=== PATIENT | male | born 1955 | race Caucasian/White ===

== ENCOUNTER → 2016-10-20 | Outpatient (CLI) | payer OTHER ==
[~2016-10-20] MED LIST: ASPI-630 PO; IOHEXOL 300 MG/ML 75 ML VIAL. IV ONE; METO25TA9 PO; OMEP20CA9 PO; VENL37.56 PO
[2016-10-20 08:20] LABS: CALCIUM 8.9 mg/dL (8.5-10.1); CREATININE 1.2 mg/dL (0.7-1.3); GFR 61.6; POTASSIUM 4.3 mmol/L (3.5-5.1)
--- NOTE | 2016-10-20 09:56 | RAD ---
EXAM: CT ANGIOGRAPHY OF THE CHEST WITH AND WITHOUT INTRAVENOUS CONTRAST. HISTORY: Thoracic aortic aneurysm. TECHNIQUE: Computed tomographic angiography of the chest was performed before and after the intravenous administration of 75 mL Omnipaque 300. 3-D maximum intensity projections were also performed. COMPARISON: 11/13/2014. FINDINGS: Images of the upper abdomen reveal moderate to severe heterogeneous diffuse hepatic steatosis. The gallbladder is surgically absent. Bone windows reveal no suspicious lesions. No pulmonary emboli are identified. The ascending aorta is mildly ectatic at 4.5 cm, stable. The proximal arch measures 3.6 cm. The distal arch, 3.0 cm. The proximal descending portion, 3.2 cm. The distal descending portion, 2.4 cm. There is no aortic dissection. There is no arch vessel stenosis. There are no pathologically enlarged mediastinal or axillary lymph nodes. There is no pleural or pericardial effusion. The heart is at least mildly enlarged and a predominantly left ventricular pattern. A hypoattenuating nodule in the right thyroid lobe measures 11 mm, increased from 9 mm previously. Lung windows reveal mild dependent atelectasis. IMPRESSION: 1. Stable ascending aortic ectasia at 4.5 cm. 2. A right thyroid nodule has increased in size. Thyroid sonography is suggested for further evaluation. 3. Left ventricular dilatation. 4. Moderate to severe heterogeneous diffuse hepatic steatosis. *One or more of the following individualized dose reduction techniques were utilized for this examination: 1. Automated exposure control. 2. Adjustment of the mA and/or kV according to patient size. 3. Use of iterative reconstruction technique.
== END | disposition home or self-care (01) ==
LOC: CT 07:31
PROVIDERS: ATTEND Nurse Practitioner
DX: I71.2 Thoracic aortic aneurysm, without rupture (principal); E04.1 Nontoxic single thyroid nodule; K76.0 Fatty (change of) liver, not elsewhere classified; I10 Essential (primary) hypertension
CPT/HCPCS: 36415; 71275; 80048; Q9967

== ENCOUNTER → 2018-02-16 | Outpatient (CLI) | payer OTHER ==
[~2018-02-16] MED LIST changes: -IOHEXOL 300 MG/ML 75 ML VIAL. IV ONE; +METO-239 PO; -METO25TA9 PO
--- NOTE | 2018-02-17 09:04 | RAD ---
Thyroid ultrasound, 02/16/2018: HISTORY: Thyroid nodule on CT scan The right lobe of the gland measures 50.1 x 2.4 x 1.9 cm, while the left lobe of the gland measures 4.8 x 2.1 x 2.0 cm. There is a 1.6 cm simple cyst in the mid right lobe of the gland. Just inferior to this level there is a 5 mm nodule with internal echogenic foci. This probably represents a cyst with colloid debris. There are several other tiny subcentimeter smooth hypoechoic nodules in both lobes, including small cysts. No large nodules or nodules with highly suspicious features are seen. IMPRESSION: 1. Multinodular thyroid gland as described above. No highly suspicious features are evident. 2. ACR TI-RADS Category 3. No sonographic follow-up is required. Electronically signed by: Jovan Harper MD (02/17/2018 9:01 AM) [facility]
== END | disposition home or self-care (01) ==
LOC: US 14:36
PROVIDERS: ATTEND Physician Assistant
DX: E04.2 Nontoxic multinodular goiter (principal); F41.8 Other specified anxiety disorders; Z85.46 Personal history of malignant neoplasm of prostate; Z90.49 Acquired absence of other specified parts of digestive tract; Z90.89 Acquired absence of other organs; Z82.49 Family history of ischemic heart disease and other diseases of the circulatory system; Z80.49 Family history of malignant neoplasm of other genital organs
CPT/HCPCS: 76536

== ENCOUNTER → 2019-04-14 | Outpatient (CLI) | payer OTHER ==
[~2019-04-14] MED LIST changes: +CONTRAST GIVEN MC PRN; +IOHEXOL 350 MG/ML 100 ML VIAL. IV ONE; +OMEP-229 PO; -OMEP20CA9 PO
--- NOTE | 2019-04-14 09:29 | RAD ---
CTA OF THE CHEST WITH AND WITHOUT CONTRAST Clinical indications: Ascending aortic dilatation. Technique: Noncontrast axial localizer was performed. After IV infusion of 100 cc of Omnipaque 350, helical CT scanning of the chest was performed using the CT thoracic aortic protocol. Multiplanar MIP reconstructions were generated. Using a MIP algorithm, 3-D reconstruction was generated. PQRS compliance Statement One or more of the following individualized dose reduction techniques were utilized for this study: 1. Automated exposure control 2. Adjustment of the mA and/or kV according to patient size 3. Use of iterative reconstruction technique Comparison: October 20, 2016. Findings: There is aneurysmal dilatation of the ascending aorta measuring up to 5.2 cm in greatest caliber just distal to the sinuses of Valsalva. This measured 4.9 cm previously. Caliber of the distal ascending aorta is 4.5 cm. The caliber of the proximal aortic arch is 3.1 cm. The caliber of the distal aortic arch is 3.4 cm caliber of the proximal descending thoracic aorta is 3.4 cm. Caliber of the distal descending thoracic aorta is 2.9 cm. No intimal flap or dissection is seen. No occlusive disease or significant stenosis is evident involving the branches of the aortic arch. No central pulmonary emboli are evident. Heart size is normal and no pericardial effusion is seen. There is an 11 mm hypodense nodule of the right lobe of the thyroid gland which is unchanged. No enlarged thoracic lymphadenopathy is evident. Upper pole left renal cyst is seen. No adrenal mass is evident. Fatty infiltration of the liver is seen. No lung mass or lung consolidation or pleural effusion or pneumothorax is seen. The proximal bronchial tree is patent. No lytic process is seen. IMPRESSION: Aneurysmal dilatation of the ascending aorta. There has been a mild increase in caliber since the previous study. No acute lung infiltrate. Stable right lobe thyroid nodule. Electronically signed by: Kristian Mercado MD (04/14/2019 9:26 AM) [facility]
== END | disposition home or self-care (01) ==
LOC: CT 07:43
PROVIDERS: ATTEND Nurse Practitioner
DX: E04.1 Nontoxic single thyroid nodule (principal); I71.2 Thoracic aortic aneurysm, without rupture; K76.0 Fatty (change of) liver, not elsewhere classified; N28.1 Cyst of kidney, acquired
CPT/HCPCS: 71275; Q9967